=== PATIENT | male | born 1995 | race Caucasian/White ===

== ENCOUNTER → 2020-03-27 | Outpatient (CLI) | payer BC ==
[~2020-03-27] MED LIST: ACET500T68 PO; HYDR-2761 PO; NAPR500T8 PO; OXYC-325 PO; PROM25TA10 PO
== END ==
LOC: LAB 10:51
PROVIDERS: ATTEND Orthopaedic Surgery
DX: Z01.812 Encounter for preprocedural laboratory examination (principal); S42.432A Displaced fracture (avulsion) of lateral epicondyle of left humerus, initial encounter for closed fracture; Z20.822 Contact with and (suspected) exposure to COVID-19; X58.XXXA Exposure to other specified factors, initial encounter; Y92.89 Other specified places as the place of occurrence of the external cause; Y93.89 Activity, other specified; Y99.8 Other external cause status
CPT/HCPCS: U0003

== ENCOUNTER 2020-03-30 14:04 | Day surgery (SDC) | payer BC ==
--- NOTE | 2020-03-29 19:33 | PDOC1 ---
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 He was seen in the ED on 03/25/20 for left elbow pain after arm wrestling with a friend when he felt a twinge of 5/10 pain. XR at the time showed a displaced and apex lateral angulated distal left humerus fracture without intraarticular involvement. Currently, he is wearing a sling and reports swelling in his left hand without any numbness or loss of sensation. No previous surgical history or known allergies. Past Medical History Past Medical History No significant medical history Past Surgical History Past Surgical History No surgical history Family History Family History Mother: diagnosed with Cancer Father: Cancer Family History: Cancer Social History Smoke: No ALCOHOL: occassional Current Medications Current Medications Current Medications Fentanyl Citrate (Fentanyl 2ml Vial) 25 mcg PRN Q5MIN PRN IVP MILD PAIN 1-3; Start 03/30/20 at 06:00; Stop 03/31/20 at 05:59 Fentanyl Citrate (Fentanyl 2ml Vial) 50 mcg PRN Q5MIN PRN IVP MODERATE PAIN 4- 6; Start 03/30/20 at 06:00; Stop 03/31/20 at 05:59 Morphine Sulfate (Morphine Sulfate) 1 mg PRN Q10MIN PRN IVP SEVERE PAIN 7-10; Start 03/30/20 at 06:00; Stop 03/31/20 at 05:59 Ringer's Solution 1,000 ml @ 30 mls/hr Q24H IV ; Start 03/30/20 at 06:00; Stop 03/30/20 at 17:59 Hydromorphone HCl (Dilaudid) 0.5 mg PRN Q10MIN PRN IVP SEVERE PAIN 7-10, 2nd CHOICE; Start 03/30/20 at 06:00; Stop 03/31/20 at 05:59 Prochlorperazine Edisylate (Compazine) 5 mg PACU PRN PRN IVP NAUSEA, MRX1; Start 03/30/20 at 06:00; Stop 03/31/20 at 05:59 Cefazolin Sodium/ Dextrose 50 ml @ 100 mls/hr 1X PREOP PRN IV PRIOR TO PROCEDURE; Start 03/30/20 at 06:00; Stop 03/30/20 at 18:00 Active Scripts Active Reported Acetaminophen 500 Mg Tablet 1,000 Mg PO PRN BID PRN Naproxen 500 Mg Tablet.dr 500 Mg PO PRN BID PRN Hydrocodone-Apap 5-325 (Hydrocodone Bit/Acetaminophen) 1 Tab Tablet 1 Tab PO PRN Q6HRS PRN Allergies Allergies: Coded Allergies: No Known Drug Allergies (Unverified , 03/29/20) Physical Exam General: Alert, Cooperative HEENT: Atraumatic Lungs: Normal air movement Heart: RRR Abdomen: Soft Extremities: Other (The LEFT arm is in a sling that was not removed for the exam. There is extensive edema to the hand without obvious radial nerve dysfunction. Tenderness over the radial head is difficult to assess although he was reportedly tender at the time of injury. ) Images Images Reports reviewed, Images independently reviewed of the left humerus x-rays from the ED on 03/25/20 XR [id number]_LT 2 VIEWS 03/25/2020 3:15 AM INDICATION: Postreduction COMPARISON: 03/25/2020 TECHNIQUE: 4 views of the left humerus are provided. FINDINGS/ IMPRESSION: There is persistent angulation and displacement of the obliquely oriented fracture involving the distal one third of the left humerus. Electronically signed by: Qiana Rao MD (03/25/2020 3:40 AM) [facility] DICTATED AND SIGNED BY: QIANA RAO MD DATE: 03/25/20 0339 CC: TATYANA MARSHALL MD; PCP,UNKNOWN. VTE Prophylaxis Ordered VTE Prophylaxis Devices: Yes VTE Pharmacological Prophylaxi: No Assessment/Plan Assessment/Plan He has a Mariana-Jose De Jesus type spiral fracture over the distal third of his humerus. We reviewed his x-rays together and discussed the natural history of the condition; specifically, I explained that these injuries commonly involve entrapment of the radial nerve, although he's more difficult to assess at this point. Risks, benefits, and alternatives to treatment were reviewed as well, and I explained that he's essentially left with two options: nonoperative watchful waiting vs surgical fixation. Given his likely restricted motion and mal vs nonunion without intervention, my recommendation is surgery. Plan for left distal humerus ORIF. We discussed potential risks of ORIF surgery, including risks of bleeding, infection, malunion, nonunion, potential need for hardware removal, neurovascular injury, radial nerve injury, tendon injury or other potential surgical or anesthetic complications. We also discussed postoperative treatment and expectations. All of his questions were answered and he desires to proceed with surgery Justifications for Admission Other Justification RITA PETERSON MD Mar 29, 2020 19:33
[~2020-03-30] VITALS: Ht 182.9 cm; Wt 93.4 kg
[~2020-03-30 14:04] MED LIST changes: +HYDROmorphone 2 MG/ML VIAL IVP PRN; +IV RINGERS,LACTATED 1000ML 1,000 ML IV SCH; +MORPHINE SULFATE 2 MG/ML VIAL. IVP PRN; -OXYC-325 PO; +PROCHLORPERAZINE 10 MG/2 ML VIAL. IVP PRN; -PROM25TA10 PO; +fentaNYL PF VIAL 100 MCG/2 ML VIAL IVP PRN
[2020-03-30] MEDS ORDERED: SEVOFLURANE > 120 MINUTES. IH ONE (16:51)
[2020-03-30] MEDS ORDERED: fentaNYL PF VIAL 100 MCG/2 ML VIAL ONE (16:52)
[2020-03-30] MEDS ORDERED: PROPOFOL 10 MG/ML (20ML) VIAL. IV ONE (16:52)
[2020-03-30] MEDS ORDERED: MIDAZOLAM HCL/PF 2 MG/2 ML VIAL. ONE (16:52)
[2020-03-30] MEDS ORDERED: DEXAMETHASONE SOD PHOS 4 MG/ML VIAL ONE (16:53)
[2020-03-30] MEDS ORDERED: ONDANSETRON PF 4 MG/2 ML VIAL. ONE (16:53)
[2020-03-30] MEDS ORDERED: KETOROLAC 30 MG/ML VIAL. ONE (16:53)
[2020-03-30] MEDS ORDERED: BUPIVACAINE-EPI 0.25% 30 ML VIAL KIT. INJ ONE (17:00)
[2020-03-30] MEDS ORDERED: HYDROmorphone 2 MG/ML VIAL ONE (17:57)
[2020-03-30] MEDS ORDERED: ROCURONIUM 50 MG/5 ML VIAL. ONE (18:05)
[2020-03-30] MEDS ORDERED: VANCOMYCIN 1 GM VIAL. ONE (18:48)
[2020-03-30] MEDS ORDERED: NEOSTIGMINE METHYLSULFATE 5 MG/5 ML SYRINGE. ONE (18:51)
[2020-03-30] MEDS ORDERED: GLYCOPYRROLATE 1 MG/5 ML VIAL. ONE (18:52)
--- NOTE | 2020-03-30 19:05 | PDOC4 ---
Operative Note Operative Note Date of Procedure: March 30, 2020 Pre-Op Diagnosis: Displaced spiral fracture of shaft of humerus, left arm, initial encounter for closed fracture S42.342A Post-Op Diagnosis: Same Procedure: Open treatment of left humeral shaft fracture with plate/screws, CPT 83683 Surgeon: Rita Petty MD Anesthesia: Canoe Maker: Juan MOELLER EBL: 200 mL Specimens Obtained: none Complications: none Drains: none Tourniquet time: estimated time 30 minutes, pressure was at 275 mm Hg Implants: Synthes 4.5 mm narrow stainless steel LCDC plate with nonlocking and locking screws. One interfragmentary lag screw was also placed. Indications for Procedure: The patient is a 24-year-old with a spiral fracture of the left distal humeral shaft which is displaced and unstable which occurred while arm wrestling. The patient and I discussed the risks, benefits and alternatives of surgery. I recommended internal fixation. We discussed the potential risks of radial nerve injury, numbness, weakness, malunion or nonunion, need for further surgery, bleeding, scarring, infection, or other potential surgical or anesthetic complications. We discussed possible nonoperative treatment but I do recommend surgery for this fracture and he agrees. The patient stated understanding of the risks benefits and alternatives. A written consent was obtained. Procedure in Detail: The patient was identified in the preoperative holding area. The correct left upper extremity was marked by me. The patient was taken to the operating room where general anesthesia was used. The patient was positioned supine on the operating table. Preoperative antibiotics were given intravenously. A timeout procedure was performed. The limb was prepared in sterile fashion with surgical prep solution. Sterile drapes were applied. The lower part of the arm was covered with an impervious stockinette and Coban. A sterile tourniquet was applied. The limb was exsanguinated with an Esmarch bandage, and the tourniquet inflated to 275 mmHg. A modified anterolateral approach to the distal humeral shaft was employed. Sharp dissection was used through the skin with a scalpel, and then careful Metzenbaum scissor dissection was performed, with care made not to injure the radial nerve or the lateral antebrachial cutaneous nerve. The intermuscular septum was located distally, and dissected proximally. The radial nerve was identified, carefully dissected and mobilized, and protected throughout the surgery with a vessel loop. I used loupe magnification (3.5 power extended field) at this point in the operation for careful nerve dissection and mobilization. It was well mobilized to prevent radial nerve injury during reduction and fixation. The sharp fracture edges were quite close to the nerve but no apparent nerve injury had occurred. The interval between the brachioradialis and biceps was employed. Electrocautery was used for hemostasis. Care was made not to injure the radial nerve or the lateral antebrachial cutaneous nerve. The fracture was identified and was markedly displaced. Fracture hematoma was cleared with curettes, rongeurs, and irrigation. The tourniquet was released so the field could expand to tolerate the plate. Electrocautery was used for hem ostasis. Careful subperiosteal dissection was used up the humerus. The fracture was held reduced with several bone clamps. Interfragmentary lag screw fixation was placed, with secure fixation of a single screw. The reduction appeared anatomic. The large image intensifier was used to confirm the reduction. The image intensifier was used throughout the procedure, and all the images were interpreted intraoperatively by me. I applied a Synthes 4.5 mm stainless steel plate. A screw was placed to secure the plate to the bone. The image intensifier was used to confirm that satisfactory length of the plate and that the plate position was satisfactory. Additional screws were now applied proximally and distally. The final two screws were locking screws for rotational stability. Excellent rigid fixation was obtained. Final images were taken with the image intensifier. Satisfactory reduction and fixation was obtained. Copious irrigation was used. Outer gloves were changed. Bovie electrocautery was used for hemostasis. Copious saline irrigation was used. 1 g of powdered vancomycin was placed in the deep wound. The fascia was repaired with 0 Vicryl [id number] sutures. My executive marketing assistant repaired the subcutaneous tissues with 2-0 Vicryl, and approximated the skin with elias. Local anesthetic 30 mL of 0.25% bupivacaine with epinephrine was injected into the skin edges. Xeroform and a sterile dressing were applied. Needle and sponge counts were correct. There were no apparent complications. RITA PETTY MD Mar 30, 2020 19:05
[2020-03-30] MEDS ORDERED: OXYC-325 PO (21:01)
[2020-03-30] MEDS ORDERED: PROM25TA10 PO (21:02)
[2020-03-30] MEDS ORDERED: oxyCODONE/APAP 5/325 1 TAB TABLET PO ONE (21:15)
[2020-03-30 21:17] VITALS: BP 127/58
== END 2020-03-30 21:45 | disposition home or self-care (01) ==
LOC: SURG 14:04
PROVIDERS: ATTEND Orthopaedic Surgery
DX: S42.342A Displaced spiral fracture of shaft of humerus, left arm, initial encounter for closed fracture (principal); Z79.899 Other long term (current) drug therapy; Z98.890 Other specified postprocedural states; Z72.89 Other problems related to lifestyle; X58.XXXA Exposure to other specified factors, initial encounter; Y93.89 Activity, other specified; Y92.89 Other specified places as the place of occurrence of the external cause; Y99.8 Other external cause status
CPT/HCPCS: 24515; 36415; 82306; A4565; C1713; J0690; J1100; J1170; J1885; J2250; J2405; J2704; J2710; J3370; J3490; J7120; 76000; J3010